=== PATIENT | male | born 1950 | race Caucasian/White ===

== ENCOUNTER → 2017-02-15 | Day surgery (SDC) | payer MEDICARE, BC ==
[~2017-02-15] MED LIST: ALEVE PO; ANUSOL-HC21 GM PR; IRON1 TA1 PO; LODINE XL400 M1 PO; REQUIP2 MG PO; SIMVASTATIN20 MG PO
== END | disposition home or self-care (01) ==
LOC: COPS 06:43
DX: Z12.11 Encounter for screening for malignant neoplasm of colon (principal); K57.30 Diverticulosis of large intestine without perforation or abscess without bleeding; K21.9 Gastro-esophageal reflux disease without esophagitis; E78.5 Hyperlipidemia, unspecified; M19.90 Unspecified osteoarthritis, unspecified site; Z86.010 Personal history of colon polyps; Z79.899 Other long term (current) drug therapy; Z98.890 Other specified postprocedural states
CPT/HCPCS: J2250

== ENCOUNTER → 2017-02-18 | Outpatient (CLI) | payer MEDICARE, BC ==
--- NOTE | ~2017-02-18 | MR112 ---
[facility] A Service of [facility] RADIOLOGY TEXT RESULTS PATIENT: ADRIEL MOYA [facility] : [birth year] UNIT #: [id number] AGE: [address]: Trae Madrid II, MD SEX: M ORDER DR: [id number] [facility] [address] [place], [place] [address] [id number] O MR#: [id number] Acc #: [id number] NAME: ADRIEL MOYA : 1950 SEX: M STUDY DATE/TIME: 02/18/2017 9:00 UNIT: [facility] ROOM: STUDY DESCRIPTION: MR Lumbar WWo Contrast Attending Physician: Trae Madrid II., M.D. Ordering Physician: Trae Madrid II., M.D. Primary Care Physician: Bill To Jr., M.D. MRI CENTER REPORT This report is preliminary unless electronic signature is present. EXAM MRI of the lumbar spine with and without contrast dated 02/18/2017. COMPARISON MRI lumbar spine from [facility] dated 09/27/2013. HISTORY Low back pain with right leg pain for a month. Patient woke up 1 day and experienced the pain. No history of falls or trauma. FINDINGS Multisequence, multiplanar imaging of the lumbar spine was obtained with and without contrast. GFR measured greater than 60. 15 mL of MultiHance was administered intravenously. Vertebral body heights and alignment are preserved. Mild edematous changes are noted along the lateral aspects of L5 inferior endplate, left more than right. Right L4 and L5 pedicle edema is seen, new since prior study. Conus terminates at L1. Signal of conus is within normal limits. There is focal round less than 5 mm enhancing focus in the right anterolateral aspect of the thecal sac at the level of L5-S1 (series 8, image 9). It is not well correlated in the sagittal postcontrast T1 sequence and is unclear if it is an artifact or related to focal enhancement of a nerve root in this region. Pre and paravertebral soft tissues do not demonstrate any significant abnormality. Increased T2-signal 2 lesions are noted in the right kidney, likely simple cysts given the lack of enhancement. There is some prominence of posterior epidural fat which causes some mass effect on the posterior aspect of the thecal sac from the level of L1-2 to the level of L4-5. It is predominantly related to thickening of ligamentum flavum and facet hypertrophic changes which displaces the fat rather than fatty hypertrophy in the posterior epidural space. L1-2: Concentric disc bulge with superimposed bilateral foraminal to extraforaminal broad-based protrusions, worse on the right. Mild STS. [facility] A Service of [facility] RADIOLOGY TEXT RESULTS PATIENT: ADRIEL MOYA LOCATION: [facility] : 50 UNIT #: [id number] AGE: [address]: Trae Madrid II, MD SEX: M ORDER DR: bilateral facet changes are noted with mild bilateral ligamentum flavum thickening, mild canal stenosis, and mild inferior bilateral neural foraminal narrowing. L2-3: Moderate disc bulge which is asymmetrically prominent in left foraminal to extraforaminal region suggestive of superimposed broad-based protrusion. Mild bilateral facet changes are noted with clspgffg-eo-qzroiu canal stenosis. Mild inferior bilateral neural foraminal narrowing is seen. L3-4: Moderate disc bulge with asymmetrical prominence in bilateral foraminal to extraforaminal region suspicious for superimposed broad-based protrusion. Mild inferior bilateral neural foraminal narrowing is noted with severe right and moderate left facet hypertrophic change. Ligamentum flavum thickening is noted with fraqpwtj-xe-sxbszm canal stenosis. Mild bilateral lateral recess encroachment. L4-5: Moderate disc bulge with very severe right and ktgz-fw-svgfxlvr left facet hypertrophic change. Moderate bilateral ligamentum flavum thickening is noted with severe canal stenosis. Moderate bilateral lateral recess stenosis are seen with evqkjcpp-tx-ihhjbt right and moderate left neural foraminal narrowing. L5-S1: Concentric disc bulge with mild right facet hypertrophic change and mild inferior bilateral neural foraminal narrowing with borderline-sized canal. Findings are relatively stable since 2013 except for improvement in subligamentous synovial cyst/inflammatory tissue in the anteromedial aspect of the right L3-4 facet joint. There is improvement in the mass effect of the nearby soft tissues due to that. IMPRESSION 1. There is interval new edema within the right L4 and L5 pedicles. It is suggestive of stress injury. No obvious fracture line is seen. 2. Degenerative disc disease and facet changes are at multiple levels, worse at L4-5 with severe canal stenosis. Bilateral lateral recess stenosis and neural foraminal narrowing are also seen, stable. 3. When compared to the previous study, degenerative changes are predominantly stable except for improvement at L3-4 in the right subligamentous synovial cyst/inflammatory tissue. It is noted anteromedial to the right L3-4 facet joint. 4. Right renal simple cyst. 5. There is focal round less than 5 mm enhancing focus in the right anterolateral aspect of the thecal sac at the level of L5-S1 (series 8, image 9). It is not well correlated in the sagittal postcontrast T1 sequence and is unclear if it is an artifact or related to focal enhancement of a nerve root in this region. Clinical correlation for possible right S1 neuritis is suggested. [facility] A Service of [facility] RADIOLOGY TEXT RESULTS PATIENT: ADRIEL MOYA LOCATION: [facility] : 50 UNIT #: [id number] AGE: [address]: Trae Madrid II, MD SEX: M ORDER DR: Dictated by... Darryl Simons M.D. THIS IS AN ELECTRONICALLY VERIFIED REPORT Darryl Simons M.D. at 02/23/2017 5:28 PM CPR/tmw TD: 02/21/2017 16:17 JOB #: [id number] MRI CENTER REPORT Page 1 of 1 COPY
--- NOTE | ~2017-02-18 | OR ---
Unit #: [id number] #: [id number] Patient: ADRIEL MOYA [id number] [address] [place], [place] [address] [id number] O MR#: [id number] NAME: ADRIEL MOYA. ROOM: Date of Procedure: 02/15/2017 Admission Date: 02/18/2017 Surgeon: Julio Maya M.D. : 1950 Attending Physician: Trae Madrid II., M.D. Primary Care Physician: Bill To Jr., M.D. OPERATIVE REPORT PRIMARY CARE PHYSICIAN Bill To M.D. PREOPERATIVE DIAGNOSIS Colorectal cancer surveillance. The patient has personal history of colon polyps. PROCEDURE PERFORMED Colonoscopy up to cecum with excellent preparation and good visualization. POSTOPERATIVE DIAGNOSES Mild sigmoid and descending colon diverticulosis. Otherwise, normal examination up to cecum. The quality of the prep was excellent. RECOMMENDATIONS Repeat colonoscopy in 5 years. SEDATION USED MAC. DESCRIPTION OF PROCEDURE Following detailed explanation of the potential risks and complications of a colonoscopy, namely perforation, bleeding, and complications related to sedation, the patient was brought to GI lab and laid in the left lateral decubitus position. A digital rectal examination was performed, which was normal. Lubricated tip of the Olympus video colonoscope was inserted through the anus and advanced under direct vision. The scope was advanced and passed up to sigmoid into descending colon. Scant small diverticula were noted in this area. The scope tip was then navigated all the way up to cecum with visualization of the ileocecal valve and appendiceal orifice. Preparation was excellent with good visualization and photodocumentation was obtained. Last several inches of the terminal ileum also visualized after intubation of the ileocecal valve and appeared normal. Successive segments of the colonic mucosa were examined upon withdrawal and appeared unremarkable. There being no polyps, mass lesions, or AVMs. Other than the scant diverticula seen in the left side, no other abnormalities noted. The patient did not have any hemorrhoids at anal verge. The scope was then withdrawn. The patient returned to recovery area. He tolerated the procedure without any postprocedure complications. Unit #: [id number] #: [id number] Patient: ADRIEL MOYA Dictated by... Julio Maya M.D. AK/donaldo TD: 02/23/2017 02:49 JOB #: [id number] CC: Bill To Jr, M.D. OPERATIVE REPORT Page 1 of 1 X Julio Maya MD X PROCEDURE OPERATIVE NOTE
--- NOTE | ~2017-02-18 | OR ---
Unit #: [id number] #: [id number] Patient: ADRIEL MOYA [id number] [address] [place], [place] [address] [id number] P MR#: [id number] NAME: ADRIEL MOYA ROOM: Date of Procedure: 02/15/2017 Admission Date: 02/18/2017 Surgeon: Julio Maya M.D. : 1950 Attending Physician: Trae Madrid II., M.D. Primary Care Physician: Bill To Jr., M.D. OPERATIVE REPORT PREOPERATIVE DIAGNOSES Colorectal cancer surveillance. The patient has personal history of colonic adenomas removed in the past. PROCEDURE PERFORMED Colonoscopy up to cecum with excellent preparation and good visualization. POSTOPERATIVE DIAGNOSES Mild sigmoid and descending colon diverticulosis. Otherwise, normal examination up to cecum. The quality of the prep was excellent. No polyps were seen. RECOMMENDATIONS Repeat colonoscopy in 5 years. SEDATION USED MAC. DESCRIPTION OF PROCEDURE Following detailed explanation of the potential risks and complications of a colonoscopy, namely perforation, bleeding, and complications related to sedation, the patient was brought to GI lab and laid in the left lateral decubitus position. A digital rectal examination was performed which was normal. Lubricated tip of the Olympus video colonoscope was inserted through the anus and advanced under direct vision. The scope was advanced and passed up to sigmoid into descending colon. Scant small diverticula were noted in this area. The scope was then navigated all the way up to cecum with visualization of ileocecal valve and the appendiceal orifice. Preparation was excellent with good visualization and photodocumentation was obtained. Last few inches of the terminal ileum also visualized after intubation of the ileocecal valve and appeared normal. Successive segments of the colonic mucosa were examined upon withdrawal and appeared unremarkable. There being no polyps, mass lesions, or AVMs. Other than the scant diverticula, no other abnormalities were noted. The patient did not have any hemorrhoids at anal verge. The scope was withdrawn. The patient returned to the recovery area. He tolerated the procedure without any postprocedure complications. Dictated by... Julio Maya M.D. Unit #: [id number] #: [id number] Patient: ADRIEL MOYA AK/donaldo TD: 02/15/2017 15:41 JOB #: [id number] CC: Bill To Jr., M.D. OPERATIVE REPORT Page 1 of 1 X Julio Maya MD PROCEDURE OPERATIVE NOTE
[2017-02-18 09:01] LABS: POC - CREATININE 1.26 mg/dL (0.64-1.27); POC - GFR >60.0 mL/min (>60)
== END | disposition home or self-care (01) ==
LOC: CMRI 08:26
PROVIDERS: Psychiatry & Neurology Neurology
DX: R53.83 Other fatigue (principal); G95.19 Other vascular myelopathies; M51.36 Other intervertebral disc degeneration, lumbar region; M48.06 Spinal stenosis, lumbar region; M99.83 Other biomechanical lesions of lumbar region; M47.896 Other spondylosis, lumbar region; N28.1 Cyst of kidney, acquired; M71.38 Other bursal cyst, other site
CPT/HCPCS: 72158; 82565; A9577